=== PATIENT | female | born 1950 | race African-American/Black ===

== ENCOUNTER 2023-10-30 09:59 | Inpatient (IN) | payer OTHER, MEDICARE ==
[~2023-10-30] VITALS: Ht 162.6 cm; Wt 85.3 kg
[2023-10-30 10:07] VITALS: O2SAT 98
[2023-10-30] MEDS: OXYCODONE HCL/ACETAMINOPHEN 5/325MG TABLET PO ONE (10:44)
[2023-10-30 12:07] LABS: BASOPHILS % 0.4 % (0.0-2.0); EOSINOPHILS % 2.7 % (0.0-5.0); HEMATOCRIT. 42.9 % (36.0-48.0); HEMOGLOBIN. 13.9 g/dL (12.0-16.0); LYMPHOCYTES % 26.7 % (20.0-50.0); MEAN CORPUSCULAR HEMOGLOBIN 30.2 pg (28.0-32.0); MEAN CORPUSCULAR HGB CONC 32.4 g/dL (31.0-37.0); MEAN CORPUSCULAR VOLUME 93.1 fL (81.0-99.0); MEAN PLATELET VOLUME 7.4 fl (7.4-10.4); NEUTROPHILS % 61.2 % (40.0-76.0); PLATELET 293 x1000/uL (130-400); RED BLOOD CELL COUNT 4.61 mill/uL (4.2-5.4); RED CELL DISTRIBUTION WIDTH 14.4 % (11.6-14.6)
[2023-10-30 12:09] LABS: CLARITY URINE CLEAR (CLEAR); COLOR URINE YELLOW (YELLOW); GLUCOSE URINE NEGATIVE (NEGATIVE); KETONES URINE NEGATIVE (NEGATIVE); LEUKOCYTE ESTERASE URINE TRACE (NEGATIVE); NITRITE URINE NEGATIVE (NEGATIVE); OCCULT BLOOD URINE 1+ (NEGATIVE); PROTEIN URINE NEGATIVE (NEGATIVE); SPECIFIC GRAVITY URINE 1.012 (1.005-1.030); UROBILINOGEN URINE 0.2 E.U./dL (0.2-1.0)
[2023-10-30 12:13] LABS: CHLORIDE 109 mEq/L (98-107); POTASSIUM 3.6 mEq/L (3.5-5.1); SODIUM 140 mEq/L (136-145)
[2023-10-30 12:15] LABS: CALCIUM 10.7 mg/dL (8.7-10.4)
[2023-10-30 12:19] LABS: CREATININE 0.8 mg/dL (0.6-1.0); GLUCOSE 79 mg/dL (70-105); UREA NITROGEN BLOOD 13 mg/dL (9-23)
[2023-10-30 12:39] LABS: BACTERIA URINE FEW; RBC URINE 0-2 /hpf (0-2); SQUAMOUS EPITHELIAL CELL URINE 1+ /lpf (RARE/1+); WBC URINE 0-2 /hpf (0-2); YEAST URINE NONE SEEN
[2023-10-30 12:40] LABS: PROTHROMBIN TIME 10.7 sec (9.6-11.0)
[2023-10-30 12:51] LABS: CARBON DIOXIDE 25 mEq/L (21-32)
[2023-10-30] MEDS: MORPHINE SULFATE 4 MG/ML INJ (FOR IV/IM USE) IV ONE (13:12)
[2023-10-30] MEDS ORDERED: ACETAMINOPHEN 325MG TABLET PO PRN (15:00)
[2023-10-30] MEDS ORDERED: DIPHENHYDRAMINE 50MG/ML VIAL IV PRN (15:00)
[2023-10-30] MEDS ORDERED: CLONIDINE 0.1MG TABLET PO PRN (15:00)
[2023-10-30] MEDS ORDERED: HYDROCODONE/ACETAMINOPHEN 5/325MG TABLET PO PRN (15:00)
[2023-10-30] MEDS ORDERED: NALOXONE HCL 0.4MG/ML VIAL IV PRN (15:15)
[2023-10-30] MEDS: ONDANSETRON HCL 4MG/2ML INJ IV PRN (17:53)
[2023-10-30 18:49] VITALS: BP 122/74; PULSE 77; RESP 18; TEMP 36.6404
[2023-10-30 20:00] VITALS: BP 122/66; PULSE 66; RESP 18; TEMP 36.72516; O2SAT 97
[2023-10-31] VITALS: BP 115/67; PULSE 66; RESP 18; TEMP 36.61404; O2SAT 98
[2023-10-31 04:00] VITALS: BP 125/71; PULSE 86; RESP 18; TEMP 36.72516; O2SAT 100
[2023-10-31 13:57] VITALS: BP 125/71; PULSE 86; TEMP 98.2
== END 2023-10-31 14:35 | disposition home or self-care (01) | DRG 563 ==
LOC: ER 09:59 → 6EST 13:33 → EDBEDREQ 13:39 → ER 15:28
PROVIDERS: ADMIT Internal Medicine; ATTEND Internal Medicine
PROC: 2W3LX1Z Immobilization of Right Lower Extremity using Splint (ICD-10-PCS; principal; 2023-10-30)
DX: S93.01XA Subluxation of right ankle joint, initial encounter (principal); E78.5 Hyperlipidemia, unspecified; Z96.651 Presence of right artificial knee joint; V49.88XA Car occupant (driver) (passenger) injured in other specified transport accidents, initial encounter; Y93.89 Activity, other specified; Y92.89 Other specified places as the place of occurrence of the external cause; Y99.8 Other external cause status
CPT/HCPCS: 36415; 71045; 72170; 73560; 73600; 73700; 80048; 81003; 85025; 99285; J2270; J2405